=== PATIENT | male | born 1970 | race Caucasian/White ===

== ENCOUNTER 2021-11-08 21:09 | Outpatient (CLI) | payer OTHER, SELFPAY ==
[2021-11-08 21:40] LABS: PSA,Total - Annual Screen 0.93 ng/mL (0.00-4.00)
== END 2021-11-08 23:59 | disposition home or self-care (01) ==
PROVIDERS: PCP Nurse Practitioner; Referring Provider Nurse Practitioner; Visit Provider Nurse Practitioner
DX: R35.0 Frequency of micturition (principal); Z12.5 Encounter for screening for malignant neoplasm of prostate
CPT/HCPCS: 84153; G0103